=== PATIENT | male | born 1960 | race Caucasian/White ===

== ENCOUNTER 2022-08-30 09:20 | Observation (INO) ==
--- NOTE | 2022-08-01 09:15 | PAT Medication Instructions ---
Medication Instructions Date of Service August 01, 2022 Home Medications Medication Instructions Recorded celecoxib 200 mg capsule (Celebrex) 200 mg PO DAILY #30 caps 05/22/22 omeprazole 20 mg tablet,delayed release 20 mg PO HS celecoxib 200 mg capsule (Celebrex) 200 mg PO DAILY cholecalciferol (vitamin D3) 50 mcg (2,000 unit) capsule (Vitamin D3) 50 mcg PO QAM diclofenac sodium 75 mg tablet,delayed release 75 mg PO BID vitamin B complex 1 tab PO QAM ASK your surgeon for instructions celecoxib 200 mg capsule (Celebrex) 200 mg PO DAILY diclofenac sodium 75 mg tablet,delayed release 75 mg PO BID DO NOT take the morning of surgery cholecalciferol (vitamin D3) 50 mcg (2,000 unit) capsule (Vitamin D3) 50 mcg PO QAM vitamin B complex 1 tab PO QAM Take evening before surgery omeprazole 20 mg tablet,delayed release 20 mg PO HS Other Notes If you have any questions please call us at [phone] or [phone] or [phone] or [phone]
--- NOTE | 2022-08-06 10:31 | Anesthesiology Consultation ---
Date of Service August 06, 2022 Assessment & Plan (1) Encounter for pre-operative examination: - difficult intubation: per [place] PAT records, "small oral airway" L knee arthroscopy: 10/07/1920 Grade 1 view, glidescope 4, ETT 8. - PONV. - Outpatient joint assessment: Patient is currently scheduled for inpatient pathway. If re-evaluated pending system levels during current pandemic/surgeon requests outpatient pathway, patient is not recommended candidate for outpatient joint program from anesthesia standpoint pending surgeon's office assessment of pt motivation/support/completion of same day joint program preop requirements. Chart Review Chart Review: Acceptable Risk for Surgery and Patient seen in Pre Admission Testing Teaching & Discussion Pre-Anesthesia Teaching/Discussion Notes: Instructed NPO after midnight before surgery, except medications with 15 cc of water. Medication instructions provided according to the PAT guidelines. History Surgery Operation Date: 08/30/22 09:20 Proposed Procedures p Right Total Knee Arthroplasty - Patricio Kraus, Height/Weight Height: 5 ft 11 in Weight: 124.738 kg Allergies Allergy/AdvReac Type Severity Reaction Status Date / Time No Known Allergies Allergy Verified 07/30/22 11:48 Medications Home Medications Medication Instructions Recorded Confirmed Last Taken omeprazole 20 mg tablet,delayed 20 mg PO HS 09/21/19 07/30/22 12/29/19 23:00 release celecoxib 200 mg capsule (Celebrex) 200 mg PO DAILY #30 caps 05/22/22 05/22/22 Unknown cholecalciferol (vitamin D3) 50 50 mcg PO QAM 07/30/22 07/30/22 Unknown mcg (2,000 unit) capsule (Vitamin D3) diclofenac sodium 75 mg 75 mg PO BID 07/30/22 07/30/22 Unknown tablet,delayed release vitamin B complex 1 tab PO QAM 07/30/22 07/30/22 Unknown Past Medical History Medical History (Updated 08/06/22 @ 10:32 by Sarah Granger PA-C) Difficult intubation per [place], "small oral airway" L knee arthroscopy: 10/07/1920 Grade 1 view, glidescope 4, ETT 8. GERD (gastroesophageal reflux disease) controlled, stable per pt History of cardiac murmur as a child Hyperlipidemia Migraines Obesity Prediabetes Sleep apnea CPAP-compliant Patient denies h/o stroke, seizures, heart attack, heart failure, HTN, blood clots or blood transfusions. Exercise / Class Metabolic Activity II 4-5 Yardwork/Stairs/Walk up hill (denies chest discomfort or shortness of breath with 1 FOS) Past Family History Family History Father Family history of esophageal cancer Daughter PONV (postoperative nausea and vomiting) Past Surgical History Surgical History (Updated 08/06/22 @ 10:33 by Sarah Granger PA-C) History of arthroscopy of left knee 10/07/1920 Grade 1 view, glidescope 4, ETT 8. History of arthroscopy of right knee History of colonoscopy History of cystoscopy WNL History of tooth extraction Hx of vasectomy Nausea and vomiting after administration of anesthetic agent denies needing scop patch Past Anesthesia History Difficult Airway and Other (daughter with PONV) History of PONV No Hx of Motion Sickness and History of PONV (denies needing scop patch) Social History Smoking Status: Never smoker Do You Dip or Chew Tobacco: No Hx Alcohol Use: Yes Alcohol type: hard liquor alcohol intake frequency: holidays/special occasions only Hx Substance Use: No substance use type: does not use Review of Systems Patient denies chest pain, shortness of breath, dyspnea on exertion, fever, chills, cough, wheezing, or palpitations. Physical Exam Vital Signs Vitals BP 127/87 P 69 TEMP 98.1 SP02 97% on RA RESP 17 Physical Full cervical extension range of motion without pain TMD < 3 finger breadths Mallampati Score 2, small oral opening Dentition: several chipped teeth, several caps/crowns; denies loose teeth, implants or bridges Lungs: normal respiratory effort. Clear throughout to auscultation, no adventitious breath sounds Cardiac: regular rate and rhythm, no murmurs noted Carotid arteries: negative bruit bilat Lab Results Anesthesia Preop Results Results Anesthesia Widget: WBC 5.66 K/ul (4.8-10.8) 08/06/22 Hgb 14.5 g/dl (14.0-18.0) 08/06/22 Hct 42.3 % (42.0-52.0) 08/06/22 Plt 247 K/uL (130-400) 08/06/22 Na 138 mmol/L (136-145) 08/06/22 K 4.2 mmol/L (3.5-5.1) 08/06/22 Cl 104 mmol/L (98-107) 08/06/22 CO2 27 mmol/L (21-32) 08/06/22 BUN 23 mg/dl (6-23) 08/06/22 Creat 1.26 mg/dl (0.6-1.4) 08/06/22 Glucose Level 113 mg/dl (70-99(Fasting)) H 08/06/22 PT 11.1 Seconds (9.0-12.0) 08/06/22 PTT 29.9 Seconds (21.0-31.0) 08/06/22 INR 1.0 (0.9-1.1) 08/06/22 Blood Type B Negative 08/06/22 Antibody Screen NEGATIVE 08/06/22 Testing Electrocardiogram Date: 08/06/22 NSR, rate 66 bpm Chest X-Ray Date: 08/06/22 The cardiac silhouette is upper limits of normal in size. No pneumothorax, pleural effusion, airspace consolidation or pulmonary edema. Degenerative changes of the shoulders and spine. IMPRESSION: No acute process. COVID-19 Risk Screen Screening Information COVID-19 Screen Date: 08/06/22 Exposure 21 Days Family/Household +COVID Last 21 Days: No Exposure 10 Days Any COVID Exposure Last 10 Days: No Symptoms Last 10 Days Experienced COVID Sx Last 10 Days: No + COVID 0-90 Days COVID + in Last 0-90 Days: No
[~2022-08-30 09:20] MED LIST: ACETAMINOPHEN 500 MG TAB PO SCH; FAMOTIDINE 20 MG TAB PO SCH; GABAPENTIN 600 MG DOSE PO SCH; LR 500ML BOLUS, THEN 15ML/HR IV SCH; LR 60ML/HR IV SCH; ORTHO JOINT MIX INFIL SCH; ROPIVACAINE 0.5% 5 MG/ML 30 ML VIAL ONE; TRANEXAMIC ACID 1,000 MG **IV Intra-op IV SCH; TRANEXAMIC ACID 1,000 MG **IV Pre-op IV SCH; dexAMETHasone 4 MG TAB PO SCH
--- NOTE | 2022-08-30 09:37 | History & Physical Bridge Note ---
Date of Service August 30, 2022 History & Physical Bridge Note I have examined the patient, reviewed the History & Physical and in the interval since the performance of the History & Physical I have noted the following changes of clinical significance: no changes noted
[2022-08-30] MEDS ORDERED: MIDAZOLAM HCL 1 MG/ML 2ML VIAL ONE (10:28)
[2022-08-30] MEDS ORDERED: fentaNYL citrate PF 100 MCG/2 ML VIAL ONE (10:28)
[2022-08-30] MEDS ORDERED: PROPOFOL IV EMULSION 10 MG/ML 20 ML VIAL IV ONE ×3 (10:28→13:37)
[2022-08-30] MEDS ORDERED: ORTHO JOINT ANESTHETIC ONE (11:47)
[2022-08-30] MEDS ORDERED: ONDANSETRON INJ 2 MG/ML 2 ML VIAL ONE ×2 (11:51→12:09)
[2022-08-30] MEDS ORDERED: ONDANSETRON INJ 2 MG/ML 2 ML VIAL IV PRN ×2 (12:27→15:44)
[2022-08-30] MEDS ORDERED: ATROPINE SULFATE 0.1 MG/ML 10ML SYR IV PRN (12:27)
[2022-08-30] MEDS ORDERED: ePHEDrine sulfate 50 MG/ML AMP IV PRN (12:27)
[2022-08-30] MEDS ORDERED: HYDROmorphone INJ 1 MG/ML SYRINGE IV PRN (12:27)
--- NOTE | 2022-08-30 13:47 | Operative Report ---
PG Post Operative Report Pre & Post Diagnosis Operation Date: 08/30/22 11:40 Pre-Op Diagnosis: Degenerative Joint Disease Right Knee Post-Op Diagnosis: Degenerative Joint Disease Right Knee I identified the patient and participated in the time-out.: Yes Procedure Operation Date: 08/30/22 11:40 Actual Procedures p Right Total Knee Arthroplasty, Cemented(Left) - Patricio Kraus DO Surgeon Patricio Kraus DO [employer] Patricio Obando PA-C Estimated Blood Loss 30 Findings Consistent with Post-Op Diagnosis Specimens Right femoral and tibial bone Description of Procedure Implants used: I used a Vannessa Persona total knee arthroplasty system with a size 10 standard femur, left tibia, 31 oval patella, and a size 11 medial congruent polyethylene bearing. All components were cemented in place with Biomet cement. Cam arrived [facility] for the above procedure. He was seen in the preoperative holding area and the operative extremity was identified and signed. He was given a preoperative antibiotic, TXA, a spinal anesthetic and an adductor nerve block. He was taken back to the operating room and laid on the table in supine position. He was given basic sedation. The operative knee was then prepped and draped in sterile fashion. A timeout was done, and the patient and the operative extremity was properly identified. A midline incision was made directly over the patella. Dissection was taken down to the extensor mechanism. A midvastus arthrotomy was used. The medial retinaculum was released and the fat pad was mostly excised. The knee was flexed and the ACL, PCL, and meniscus were removed. A drill was sent down the center of the femoral canal followed by an intramedullary amaya. Off that amaya a distal femoral cutting block was placed. 9 mm was resected off the distal femur at 5 of valgus. A posterior referencing AP sizing guide was then placed on the distal femur. The femur measured to be a size 10. 2 drill holes were placed in 3 of external rotation. A 4-in-1 cutting block was then impacted into place. Anterior, posterior, and chamfer cuts were then made. The proximal tibia was then exposed. An external tibial alignment guide was placed. A tibial cut guide was then anchored in place and the proximal tibia was then resected. The posterior aspect of the knee was then opened up and any additional meniscus fragments and osteophytes were removed. The tibia measured to be a size F. The tibial plate was then placed in the appropriate rotation and the tibia was drilled and punched. Trial components were then placed. I used a size 11 medial congruent polyethylene insert. The knee was brought through a full range of motion and felt to be stable. The peg holes for the femoral component were then drilled. The patella was then everted and 9 mm was resected off the posterior aspect of the patella. The patella measured to be a size 31 oval. 3 peg holes were then drilled. A trial patella was placed. The knee was once again brought through a full range of motion and felt to be stable. Trial components were then removed. The surrounding soft tissues were injected with 100 cc of an orthopedic pain control cocktail. All components were then cemented into place with Biomet cement. The final polyethylene insert was then snapped into place. Once cement was dry the tourniquet was deflated. Hemostasis was obtained. A dilute betadyne lavage was then done for 3 minutes. The joint was then irrigated with normal saline solution. The midvastus arthrotomy was then closed with #1 Vicryl suture. The skin was closed with 2-0 Vicryl, 3-0V lock suture, and sheyla. A soft compressive dressing was placed. He was then transferred to a hospital bed and taken to the postanesthesia care unit in stable condition. He tolerated the procedure well. Patricio Obando PA-C, was present for the entire procedure. He was critical for patient positioning, prepping, draping, retraction exposure, wound closure and application of sterile dressing. I attest to the content of the Intraoperative Record and any orders documented therein. Any exceptions are noted below.
--- NOTE | 2022-08-30 14:49 | XRay Report ---
TWO VIEWS RIGHT KNEE CLINICAL HISTORY: Postoperative examination. FINDINGS: AP and crosstable lateral portable views of the right knee are obtained. A right knee arthr oplasty is in near anatomic alignment. There has been undersurface remodeling of the patella. No acut e fracture is seen. There are expected postoperative changes around the knee including skin clips, so ft tissue edema, and subcutaneous gas. IMPRESSION: Expected postoperative changes status post right knee arthroplasty. No acute fracture is seen. ACT 112: Negative or not required by law. Electronically signed by: Gilmer Ford M.D. 08/30/2022 2:48 PM
--- NOTE | 2022-08-30 14:51 | Anesthesiology Progress Note ---
Date of Service August 30, 2022 Anesthesia Post Procedure Vital Signs Vital Signs: Temp Pulse Pulse Resp BP BP Pulse Ox 08/30/22 14:40 66 17 141/77 H 96 08/30/22 14:30 75 17 116/84 96 08/30/22 14:20 82 21 129/84 98 08/30/22 14:12 36.2 C L 79 13 135/69 98 08/30/22 10:04 36.6 C 76 20 169/102 H 96 O2 Del Method O2 Flow Rate 08/30/22 14:40 Room Air 08/30/22 14:30 Room Air 08/30/22 14:20 Oxymask 5 08/30/22 14:12 Oxymask 11 08/30/22 10:04 Room Air Pain Intensity Right Knee: Pain Intensity: 3 Transfer of Care Handoff Completed per policy Notes Mental Status: alert / awake / arousable Patient Amnestic to Procedure: Yes Nausea / Vomiting: adequately controlled Pain: adequately controlled Airway Patency, RR, SpO2: stable & adequate BP & HR: stable & adequate Hydration State: stable & adequate Anesthetic Complications: no major complications apparent
[2022-08-30] MEDS ORDERED: METOCLOPRAMIDE HCL INJ 5 MG/ML 2 ML VIAL IV PRN (15:44)
[2022-08-30] MEDS ORDERED: MAGNESIUM HYDROXIDE SUSP 30 ML UDC PO PRN (15:44)
[2022-08-30] MEDS ORDERED: SODIUM CHLORIDE 0.9% 1000ML 1,000 ML IV SCH (15:44)
[2022-08-30] MEDS ORDERED: HYDROmorphone INJ 0.5 MG/0.5 ML SYR IV PRN (15:44)
[2022-08-30] MEDS ORDERED: NALOXONE HCL 0.4 MG/1 ML VIAL/CARP IV PRN (15:44)
[2022-08-30] MEDS ORDERED: bisacodyL 10 MG SUPP PR PRN (15:44)
[2022-08-30] MEDS: KETOROLAC 30 MG/ML VIAL IV SCH ×2 (16:46→21:01)
[2022-08-30] MEDS: oxyCODONE HCL IR 5 MG TAB (IMMEDIATE RELEASE) PO PRN ×2 (18:48→22:48)
[2022-08-30] MEDS: DOCUSATE SODIUM 100 MG CAP PO SCH (20:52)
[2022-08-30] MEDS: ceFAZolin 2000MG 2,000 MG/15 ML SYR IV SCH (20:54)
[2022-08-30] MEDS ORDERED: SENNA 8.6 MG TAB PO SCH (21:00)
[2022-08-30] MEDS ORDERED: PANTOprazole 40 MG TAB PO SCH (21:00)
[2022-08-30] MEDS: ACETAMINOPHEN 500 MG TAB PO SCH (21:00)
[2022-08-31] MEDS: ceFAZolin 2000MG 2,000 MG/15 ML SYR IV SCH (04:51)
[2022-08-31] MEDS: KETOROLAC 30 MG/ML VIAL IV SCH (04:52)
[2022-08-31] MEDS: ACETAMINOPHEN 500 MG TAB PO SCH (05:01)
--- NOTE | 2022-08-31 05:42 | Orthopedic Progress Note ---
Date of Service August 31, 2022 Assessment & Plan (1) Status post right knee replacement: Overall is doing very well. Is not having much pain in the right knee. He will be seen by physical therapy today for ambulation and range of motion exercises. He is on aspirin for DVT prophylaxis. He can be discharged home later today. He will follow-up with orthopedics in 2 weeks. Nicolas Levy was seen and examined at bedside this morning. Overall is doing very well. He is not having much pain in the right knee. He has been up and ambulating to the bathroom. He has no complaints.. Review of Systems All systems reviewed & are unremarkable except as noted in HPI & below. Physical Exam On physical examination of the right knee, the dressing is clean and dry. His leg is out full extension. He has active dorsiflexion plantarflexion of the right ankle.. Results & Data Results & Data Laboratory Results . Diagnostic Findings Postoperative x-rays of the right knee show the prosthesis to be in anatomic alignment without any evidence of fracture, dislocation, or loosening.. PG Care Time/CCT Total # of Minutes Spent Total Time Spent with Patient: Total time spent is greater than 50% in coordination of care (as documented) at patient's floor/unit and/or counseling patient: Coding Level of Care Code 20412 Post Operative Follow-Up Diagnoses Status post right knee replacement Z96.651
--- NOTE | 2022-08-31 05:43 | Discharge Summary ---
Date of Service August 31, 2022 Principal Diagnosis Same as "Discharge Diagnosis" noted below under Discharge Instructions. Discharge Exam On physical examination of the right knee, the dressing is clean and dry. His leg is out full extension. He has active dorsiflexion plantarflexion of the right ankle.. Discharge Data Procedures Performed Operation Date: 08/30/22 11:40 Actual Procedures p Right Total Knee Arthroplasty, Cemented(Left) - Patricio Kraus DO Ordered Studies 08/30/22 05:00 US - OR guided needle placemen Routine Hospital Course (1) Status post right knee replacement: On August 30, 2022 Cam arrived at [facility] and underwent a right knee replacement without complication. He had a spinal anesthetic. Postoperatively he was started on aspirin for DVT prophylaxis and transferred to the general orthopedic floors. His hospital course was uneventful. On postop day #1, his vital signs were stable and his pain was well controlled. He was able to participate well with physical therapy doing ambulation and range of motion exercises. He was then discharged home. He will follow-up with orthopedics in 2 weeks. PG Care Time/CCT Total # of Minutes Spent Total Time Spent with Patient: Total time spent is greater than 50% in coordination of care (as documented) at patient's floor/unit and/or counseling patient: Discharge Plan Discharge Items Patient Disposition: Home - Home Health Services Reason For Visit: POST OP Discharge Diagnosis: Right knee replacement Activity: Per Instructions section Non-emergency contact: Surgeon Call non-emergency contact if: your wound has increased redness and your wound has increased drainage Follow-up/Referrals: Hector Rodrigues PA-C [Primary Care Provider] - Diet: Regular Addtl Attending Provider Instructions: Activity and Therapy Recommendations: * If you are using [facility] then therapy will be provided at your home until they feel you have accomplished all of your goals. * If you are using [facility] then Physical Therapy will be provided until they feel you are ready to start Outpatient Physical Therapy. * If you are not using home therapy then Outpatient Physical Therapy should start about 3-5 days from your day of surgery. Therapy will last about 6-10 weeks * It is important not to put a pillow under your knee when you are relaxing or sleeping. It is just as important to make sure you are getting your knee perfectly straight as it is to regain your knee bend. * You were shown a series of exercises in the hospital. Do these exercises three times each day including the exercises you were shown in physical therapy. * Get up and walk several times each day. For the first four weeks, try not to stand or walk for more than one hour at a time. If you do stand or walk for more than one hour, you will not hurt anything, but your leg will likely swell. * As you feel comfortable, you may change from the walker or crutches to a cane and then to independent walking. Medications: * Narcotic You will likely be sent home from the hospital with a prescription for the narcotic pain medication that worked best throughout your stay. * Aspirin Most patients will be required to take Aspirin 81mg twice a day for 6 weeks after surgery. This is obtained [id number] and a prescription is not necessary. * Other medications may be prescribed for specific circumstances. If you have any questions, please call the office at . * Resume previous home medications unless otherwise instructed TEDs/Elastic Stockings: The white elastic stockings help limit swelling and prevent blood clots from forming in your legs.~ The more you wear them, the more they work. Wear them for six weeks. Dressing Care: The dressing can be changed after physical therapy on postop day #1. Daily dry dressing changes for a few days, especially if the incision is still draining some. If the incision is not draining then you may leave the sheyla open to air. If there is a little bit of drainage or if the sheyla are getting stuck on your clothing then cover the incision with a dry dressing. The sheyla will be removed at your 2 week follow-up appointment. Showering: You may shower 5 days from the day of surgery as long as the incision is no longer draining. You may shower with the sheyla exposed. Let soapy water run over the sheyla and pat them dry. Do not scrub or soak the incision. Things To Watch For: * Drainage from the incision site that occurs more than one week after your surgery. * Increased redness at the incision site. * Fever above 102 degrees Fahrenheit. * Unusual chest pain or shortness of breath. * Call [facility] at with any of the above pro blems Follow-Up Visit: Follow-up with Dr. Kraus's PA (Patricio Obando) 2-3 weeks after your day of surgery. He will remove your sheyla and answer any questions. If you have any additional questions or concerns, Dr Kraus is usually in the office at the same time and will be available An appointment was probably scheduled when you signed-up for surgery in the office. If you have any questions call Office Instructions: More detailed instructions as well as Frequently Asked Questions were provided in a folder by our office when you signed-up for surgery. Please review these instructions when you get home. If you have any further questions or concerns, please feel free to call the office at [phone] Pending Studies at Discharge: No Stand-Alone Forms: My [facility] Medications and DC Order Prescriptions: New oxycodone-acetaminophen 5-325 mg tablet 1 tab PO Q6H PRN (Reason: pain) Qty: 30 0RF aspirin [Adult Aspirin Regimen] 81 mg tablet,delayed release (DR/EC) 81 mg PO BID Qty: 84 0RF Continued omeprazole 20 mg Tablet,Delayed Release (Dr/Ec) 20 mg PO HS diclofenac sodium 75 mg Tablet,Delayed Release (Dr/Ec) 75 mg PO HS vitamin B complex Tablet 1 tab PO QAM cholecalciferol (vitamin D3) [Vitamin D3] 50 mcg (2,000 unit) Capsule 50 mcg PO QAM Admission Data Admit Date/Time: 08/30/22 14:11 Attending Provider: Patricio Kraus Admit Provider: Patricio Kraus Primary Care Provider: Hector Rodrigues
[2022-08-31] MEDS ORDERED: dexAMETHasone 4 MG TAB PO SCH (08:00)
[2022-08-31] MEDS: DOCUSATE SODIUM 100 MG CAP PO SCH (08:29)
[2022-08-31] MEDS: oxyCODONE HCL IR 5 MG TAB (IMMEDIATE RELEASE) PO PRN (08:32)
[2022-08-31] MEDS ORDERED: MULTIVITAMIN TAB PO SCH (09:00)
== END 2022-08-31 10:55 | disposition home or self-care (01) ==
LOC: 3W 09:20 → ASU 09:20

== ENCOUNTER 2023-10-31 10:26 | Observation (INO) ==
--- NOTE | 2023-10-08 10:53 | PAT Medication Instructions ---
Medication Instructions Date of Service October 08, 2023 Home Medications Medication Instructions Recorded oxycodone-acetaminophen 5 mg-325 1 tab PO Q6H PRN pain #30 tabs 08/30/22 mg tablet amoxicillin 500 mg capsule 500 mg PO ONCE #20 caps 11/26/22 omeprazole 20 mg tablet,delayed release 20 mg PO HS cholecalciferol (vitamin D3) 50 mcg (2,000 unit) capsule (Vitamin D3) 50 mcg PO QAM vitamin B complex 1 tab PO QAM oxycodone-acetaminophen 5 mg-325 mg tablet 1 tab PO Q6H PRN amoxicillin 500 mg capsule 500 mg PO ONCE Continue as directed amoxicillin 500 mg capsule 500 mg PO ONCE DO NOT take the morning of surgery cholecalciferol (vitamin D3) 50 mcg (2,000 unit) capsule (Vitamin D3) 50 mcg PO QAM vitamin B complex 1 tab PO QAM Take morning of surgery With a small sip of water, OTHERWISE NOTHING TO EAT OR DRINK AFTER MIDNIGHT: oxycodone-acetaminophen 5 mg-325 mg tablet 1 tab PO Q6H PRN(if needed) Take evening before surgery omeprazole 20 mg tablet,delayed release 20 mg PO HS oxycodone-acetaminophen 5 mg-325 mg tablet 1 tab PO Q6H PRN(if needed) Other Notes If you have any questions please call us at [phone] or [phone] or [phone] or [phone]
--- NOTE | 2023-10-15 09:00 | Anesthesiology Consultation ---
Date of Service October 15, 2023 Assessment & Plan (1) Encounter for pre-operative examination: - Check BSG AM DOS - Infectious disease screening: Per assessment on 10/15/23: No known infectious disease contacts or current infectious disease symptoms. No noted recent Covid positive test result. - Outpatient joint assessment: Pt currently scheduled for inpatient pathway. If surgeon requests review for outpatient joint pathway, patient is an acceptable candidate for outpatient joint program from anesthesia standpoint pending surgeon's office assessment that patient is motivated, has good support and completes [facility] preop requirements. - Hx difficult intubation: * Per [facility], [facility] records, "small oral airway" * Left knee arthroscopy: 10/07/1920 Grade 1 view, glidescope 4, ETT 8 - S/P Right TKA (08/30/22): SAB at L3-4 + regional at [facility] - PONV: Patient states significant improvement with recent surgery when IV pretreatment/antiemetic provided. Chart Review Chart Review: Acceptable Risk for Surgery and Patient seen in Pre Admission Testing Teaching & Discussion Pre-Anesthesia Teaching/Discussion Notes: Instructed NPO after midnight before surgery,except medications with 15 cc of water. Medication instructions provided according to the [facility] guidelines. History Surgery Operation Date: 10/31/23 09:00 Proposed Procedures p Left Total Knee Arthroplasty - Patricio Kraus, Height/Weight Height: 5 ft 10 in Weight: 126.1 kg Allergies Allergy/AdvReac Type Severity Reaction Status Date / Time No Known Allergies Allergy Verified 08/30/22 09:52 Medications Home Medications Medication Instructions Recorded Confirmed Last Taken omeprazole 20 mg tablet,delayed 20 mg PO HS 09/21/19 09/24/23 08/29/22 20:00 release cholecalciferol (vitamin D3) 50 50 mcg PO QAM 07/30/22 09/24/23 Unknown mcg (2,000 unit) capsule (Vitamin D3) vitamin B complex 1 tab PO QAM 07/30/22 09/24/23 Unknown oxycodone-acetaminophen 5 mg-325 1 tab PO Q6H PRN pain #30 tabs 08/30/22 09/24/23 Unknown mg tablet amoxicillin 500 mg capsule 500 mg PO ONCE #20 caps 11/26/22 09/24/23 Unknown Past Medical History Medical History GERD (gastroesophageal reflux disease) controlled, stable per pt History of cardiac murmur as a child No murmur noted during PAT evaluation 10/15/23 Hyperlipidemia Migraines Obesity Osteoarthritis Prediabetes Seasonal allergies Sleep apnea CPAP (compliant) Exercise / Class Metabolic Activity II 4-5 Yardwork/Stairs/Walk up hill (one FS: No CP, no SOB) Past Family History Family History Father Family history of esophageal cancer Daughter PONV (postoperative nausea and vomiting) Past Surgical History Surgical History Difficult intubation Per [place] PAT records, "small oral airway" Left knee arthroscopy: 10/07/1920 Grade 1 view, glidescope 4, ETT 8 History of arthroscopy of left knee 10/07/1920 Grade 1 view, glidescope 4, ETT 8 History of arthroscopy of right knee History of colonoscopy History of cystoscopy History of tooth extraction History of total right knee replacement Right TKA (08/30/22): SAB at L3-4 + regional at [facility] Hx of vasectomy Nausea and vomiting after administration of anesthetic agent Past Anesthesia History Difficult Airway (Per [place] PAT records, "small oral airway" > Left knee arthroscopy: 10/07/1920 Grade 1 view, glidescope 4, ETT 8) and No Family Hx of Anesthesia Complications (except daughter with PONV) History of PONV History of PONV (Improved when pretreatment used) Social History Smoking Status: Never smoker Do You Dip or Chew Tobacco: No Hx Alcohol Use: Yes Alcohol type: hard liquor alcohol intake frequency: holidays/special occasions only Hx Substance Use: No substance use type: does not use Review of Systems Patient denies chest pain, shortness of breath, dyspnea on exertion, fever, chills, cough, wheezing, palpitations. Physical Exam Vital Signs BP 153/93 P 74 TEMP 98.0 SP02 96%RA RESP 18 Physical Full cervical extension range of motion. Full TMJ range of motion. TMD < 3 finger breaths (difficult to palpate) Mallampati Score 3 Dentition: intact, several crowns/root canals, missing tooth Lungs: clear throughout to auscultation Cardiac: regular rate and rhythm, no murmurs noted Spine: normal Carotid arteries: negative bruit Extremities: no LE edema Short, think neck Lab Results Anesthesia Preop Results Results Anesthesia Widget: WBC 5.32 K/ul (4.8-10.8) 10/15/23 Hgb 15.1 g/dl (14.0-18.0) 10/15/23 Hct 45.2 % (42.0-52.0) 10/15/23 Plt 236 K/uL (130-400) 10/15/23 Na 138 mmol/L (136-145) 10/15/23 K 4.1 mmol/L (3.5-5.1) 10/15/23 Cl 103 mmol/L (98-107) 10/15/23 CO2 27 mmol/L (21-32) 10/15/23 BUN 19 mg/dl (6-23) 10/15/23 Creat 1.22 mg/dl (0.6-1.4) 10/15/23 Glucose Level 118 mg/dl (70-99(Fasting)) H 10/15/23 PT 10.9 Seconds (9.0-12.0) 10/15/23 PTT 29 Seconds (21-31) 10/15/23 INR 1.0 (0.9-1.1) 10/15/23 Blood Type B Negative 10/15/23 Antibody Screen NEGATIVE 10/15/23 Testing Electrocardiogram Date: 10/15/23 NSR at 76bpm. "Normal ECG" Chest X-Ray Date: 10/15/23 FINDINGS: PA and lateral chest radiographs are compared to study dated 08/06/2022. The heart is mildly enlarged. The pulmonary vasculature is noncongested. The lungs and pleural spaces are clear. There is no pneumothorax. The bony thorax appears intact. Arthritic change is noted in the shoulders. IMPRESSION: No active disease in the chest.
[~2023-10-31 10:26] MED LIST changes: -ACETAMINOPHEN 500 MG TAB PO SCH; +BUPIVACAINE 0.5 % 5 MG/1 ML PF 10ML VIAL ONE; -FAMOTIDINE 20 MG TAB PO SCH; -GABAPENTIN 600 MG DOSE PO SCH; -LR 500ML BOLUS, THEN 15ML/HR IV SCH; -LR 60ML/HR IV SCH; -ORTHO JOINT MIX INFIL SCH; -TRANEXAMIC ACID 1,000 MG **IV Intra-op IV SCH; -TRANEXAMIC ACID 1,000 MG **IV Pre-op IV SCH; -dexAMETHasone 4 MG TAB PO SCH
[2023-10-31] MEDS: ACETAMINOPHEN 500 MG TAB PO SCH (10:59)
[2023-10-31] MEDS: GABAPENTIN 600 MG DOSE PO SCH (10:59)
[2023-10-31] MEDS: FAMOTIDINE 20 MG TAB PO SCH (10:59)
[2023-10-31] MEDS: dexAMETHasone**PF** 10 MG/ML VIAL IV SCH (11:00)
[2023-10-31] MEDS: LR 60ML/HR IV SCH (11:00)
[2023-10-31] MEDS ORDERED: DEXAMETHASONE SOD INJ 4 MG/ML VIAL ONE (11:08)
[2023-10-31] MEDS ORDERED: ONDANSETRON INJ 2 MG/ML 2 ML VIAL ONE (11:08)
[2023-10-31] MEDS ORDERED: LIDOCAINE 2% 2 ML VIAL/AMP(20MG/ML) INFIL ONE (11:08)
[2023-10-31] MEDS ORDERED: PROPOFOL IV EMULSION 10 MG/ML 20 ML VIAL IV ONE (11:08)
[2023-10-31] MEDS ORDERED: MIDAZOLAM HCL 1 MG/ML 2ML VIAL ONE (11:09)
[2023-10-31] MEDS ORDERED: fentaNYL citrate PF 100 MCG/2 ML VIAL ONE (11:09)
[2023-10-31] MEDS: LR 500ML BOLUS, THEN 15ML/HR IV SCH (11:10)
--- NOTE | 2023-10-31 11:37 | History & Physical Bridge Note ---
Date of Service October 31, 2023 History & Physical Bridge Note I have examined the patient, reviewed the History & Physical and in the interval since the performance of the History & Physical I have noted the following changes of clinical significance: no changes noted
[2023-10-31] MEDS: TRANEXAMIC ACID 1,000 MG **IV Pre-op IV SCH (12:19)
[2023-10-31] MEDS: ceFAZolin 3000MG 3,000 MG/72.5 ML BAG IV SCH (12:39)
[2023-10-31] MEDS: ROPIV 0.5% 246mg, Ketorolac 30mg, EPINEPHrine 0.5mg in NSS INFIL SCH (13:33)
[2023-10-31] MEDS: ORTHO JOINT ANESTHETIC ONE (13:33)
--- NOTE | 2023-10-31 14:25 | Operative Report ---
PG Post Operative Report Pre & Post Diagnosis Operation Date: 10/31/23 12:00 Pre-Op Diagnosis: Degenerative Joint Disease Left Knee Post-Op Diagnosis: Degenerative Joint Disease Left Knee I identified the patient and participated in the time-out.: Yes Procedure Operation Date: 10/31/23 12:00 Actual Procedures p Left Total Knee Arthroplasty(Left) - Patricio Kraus DO Surgeon Patricio Kraus DO Cafeteria Associate None Estimated Blood Loss 30 Findings Consistent with Post-Op Diagnosis Specimens Left femoral and tibial bone Description of Procedure Implants used: I used a Vannessa Persona total knee arthroplasty system with a size 10 standard femur, F tibia, 31 oval patella, and a size 14 medial congruent polyethylene bearing. All components were cemented in place with Biomet cement. Cam arrived [facility] for the above procedure. He was seen in the preoperative holding area and the operative extremity was identified and signed. He was given a preoperative antibiotic, TXA, a spinal anesthetic and an adductor nerve block. He was taken back to the operating room and laid on the table in supine position. He was given basic sedation. The operative knee was then prepped and draped in sterile fashion. A timeout was done, and the patient and the operative extremity was properly identified. A midline incision was made directly over the patella. Dissection was taken down to the extensor mechanism. A medial parapatellar arthrotomy was used. The medial retinaculum was released and the fat pad was mostly excised. The knee was flexed and the ACL, PCL, and meniscus were removed. A drill was sent down the center of the femoral canal followed by an intramedullary amaya. Off that amaya a distal femoral cutting block was placed. 9 mm was resected off the distal femur at 5 of valgus. A posterior referencing AP sizing guide was then placed on the distal femur. The femur measured to be a size 10. 2 drill holes were placed in 3 of external rotation. A 4-in-1 cutting block was then impacted into place. Anterior, posterior, and chamfer cuts were then made. The proximal tibia was then exposed. An external tibial alignment guide was placed. A tibial cut guide was then anchored in place and the proximal tibia was then resected. The posterior aspect of the knee was then opened up and any additional meniscus fragments and osteophytes were removed. The tibia measured to be a size F. The tibial plate was then placed in the appropriate rotation and the tibia was drilled and punched. Trial components were then placed. I used a size 14 medial congruent polyethylene insert. The knee was brought through a full range of motion and felt to be stable. The peg holes for the femoral component were then drilled. The patella was then everted and 9 mm was resected off the posterior aspect of the patella. The patella measured to be a size 31 oval. 3 peg holes were then drilled. A trial patella was placed. The knee was once again brought through a full range of motion and felt to be stable. Trial components were then removed. The surrounding soft tissues were injected with 100 cc of an orthopedic pain control cocktail. All components were then cemented into place with Biomet cement. The final polyethylene insert was then snapped into place. Once cement was dry the tourniquet was deflated. Hemostasis was obtained. A dilute betadyne lavage was then done for 3 minutes. The joint was then irrigated with normal saline solution. The medial parapatellar arthrotomy was then closed with #1 Vicryl suture. The skin was closed with 2-0 Vicryl, 3-0V lock suture, and sheyla. A soft compressive dressing was placed. He was then transferred to a hospital bed and taken to the postanesthesia care unit in stable condition. He tolerated the procedure well. I attest to the content of the Intraoperative Record and any orders documented therein. Any exceptions are noted below.
--- NOTE | 2023-10-31 15:01 | Anesthesiology Progress Note ---
Date of Service October 31, 2023 Anesthesia Post Procedure Vital Signs Vital Signs: Temp Pulse Pulse Resp BP Pulse Ox O2 Del Method 10/31/23 14:55 67 16 126/87 99 Room Air 10/31/23 14:45 36.4 C L 75 17 127/78 95 Room Air 10/31/23 14:35 81 14 118/78 98 Oxymask 10/31/23 14:25 78 16 131/81 99 Oxymask 10/31/23 14:15 36 C L 79 14 142/86 H 97 Oxymask 10/31/23 10:51 37 C 79 20 174/107 H 96 Room Air O2 Flow Rate 10/31/23 14:55 10/31/23 14:45 10/31/23 14:35 3 10/31/23 14:25 6 10/31/23 14:15 6 10/31/23 10:51 Transfer of Care Handoff Completed per policy Notes Mental Status: alert / awake / arousable Patient Amnestic to Procedure: Yes Nausea / Vomiting: adequately controlled Pain: adequately controlled Airway Patency, RR, SpO2: stable & adequate BP & HR: stable & adequate Hydration State: stable & adequate Neuraxial Anesthesia: was administered and sensory block is resolving Anesthetic Complications: no major complications apparent
--- NOTE | 2023-10-31 15:43 | XRay Report ---
TWO VIEWS LEFT KNEE CLINICAL HISTORY: Postoperative examination. FINDINGS: AP and crosstable lateral portable views of the left knee are obtained. A left knee arthrop lasty is in near anatomic alignment. There has been undersurface remodeling of the patella. No acute fracture is seen. There are expected postoperative changes around the knee including skin clips, soft tissue edema, and subcutaneous gas. IMPRESSION: Expected postoperative changes status post left knee arthroplasty. No acute fracture is s een. ACT 112: Negative or not required by law. Electronically signed by: Gilmer Ford M.D. 10/31/2023 3:42 PM
[2023-10-31] MEDS ORDERED: ONDANSETRON INJ 2 MG/ML 2 ML VIAL IV PRN (16:48)
[2023-10-31] MEDS ORDERED: METOCLOPRAMIDE HCL INJ 5 MG/ML 2 ML VIAL IV PRN (16:48)
[2023-10-31] MEDS ORDERED: NALOXONE HCL 0.4 MG/1 ML VIAL/CARP IV PRN (16:48)
[2023-10-31] MEDS ORDERED: MAGNESIUM HYDROXIDE SUSP 30 ML UDC PO PRN (16:48)
[2023-10-31] MEDS ORDERED: bisacodyL 10 MG SUPP PR PRN (16:48)
[2023-10-31] MEDS ORDERED: HYDROmorphone INJ 0.5 MG/0.5 ML SYR IV PRN (16:48)
[2023-10-31] MEDS: TRANEXAMIC ACID 1,000 MG **IV Intra-op IV SCH (16:51)
[2023-10-31] MEDS: SODIUM CHLORIDE 0.9% 1,000 ML IV SCH (16:57)
[2023-10-31] MEDS: KETOROLAC 30 MG/ML VIAL IV SCH (16:58)
[2023-10-31] MEDS: oxyCODONE HCL IR 5 MG TAB (IMMEDIATE RELEASE) PO PRN (18:42)
[2023-10-31] MEDS: SENNA 8.6 MG TAB PO SCH (20:36)
[2023-10-31] MEDS: ASPIRIN 81 MG ECTAB PO SCH (20:36)
[2023-10-31] MEDS: DOCUSATE SODIUM 100 MG CAP PO SCH (20:36)
[2023-10-31] MEDS: PANTOprazole 40 MG TAB PO SCH (20:36)
[2023-10-31] MEDS: ceFAZolin 2000MG 2,000 MG/15 ML SYR IV SCH (20:54)
[2023-11-01] MEDS: dexAMETHasone 4 MG TAB PO SCH (08:35)
[2023-11-01] MEDS: MULTIVITAMIN TAB PO SCH (08:35)
--- NOTE | 2023-11-01 08:48 | Orthopedic Progress Note ---
Date of Service November 01, 2023 Assessment & Plan (1) Status post left knee replacement: Overall he is doing well. Is not having much pain in the left knee. He will be seen by physical therapy today for ambulation and range of motion exercises. The nursing staff can change his dressing after physical therapy. He is on aspirin for DVT prophylaxis. He can be discharged home later today. He will follow-up with orthopedics in 2 weeks. Nicolas Levy was seen and examined at bedside this morning. Overall is doing very well. Is not having much pain in the left knee. He has been up and ambulating to the bathroom. He has no complaints.. Review of Systems All systems reviewed & are unremarkable except as noted in HPI & below. Physical Exam On physical examination left knee, the dressing is clean and dry. His legs out full extension. He has active dorsiflexion plantarflexion of his left ankle.. Results & Data Results & Data Laboratory Results . Diagnostic Findings Postoperative x-rays of the left knee show the prosthesis to be in anatomic alignment without any evidence of fracture, his cage, or loosening.. PG Care Time/CCT Total # of Minutes Spent Total Time Spent with Patient: Total time spent is greater than 50% in coordination of care (as documented) at patient's floor/unit and/or counseling patient: Coding Level of Care Code 25550 Post Operative Follow-Up Diagnoses Status post left knee replacement Z96.652
--- NOTE | 2023-11-01 08:49 | Discharge Summary ---
Date of Service November 01, 2023 Principal Diagnosis Same as "Discharge Diagnosis" noted below under Discharge Instructions. Discharge Exam On physical examination left knee, the dressing is clean and dry. His legs out full extension. He has active dorsiflexion plantarflexion of his left ankle.. Discharge Data Procedures Performed Operation Date: 10/31/23 12:00 Actual Procedures p Left Total Knee Arthroplasty(Left) - Patricio Kraus DO Ordered Studies 10/31/23 05:00 US - OR guided needle placemen Routine Hospital Course (1) Status post left knee replacement: On October 31, 2023 Cam arrived at [facility] and underwent a left knee replacement without complication. He had a spinal anesthetic. Postoperatively he was started on aspirin for DVT prophylaxis and transferred to the general orthopedic floors. His hospital course was uneventful. On postop day #1, his vital signs were stable and her pain was well-controlled. He was able to participate well with physical therapy doing ambulation and range of motion exercises. He was then discharged home. He will follow-up with orthopedics in 2 weeks.. PG Care Time/CCT Total # of Minutes Spent Total Time Spent with Patient: Total time spent is greater than 50% in coordination of care (as documented) at patient's floor/unit and/or counseling patient: Discharge Plan Discharge Items Patient Disposition: Home - Self-Care Reason For Visit: LEFT KNEE REPLACEMENT Discharge Diagnosis: Left knee replacement Activity: Per Instructions section Non-emergency contact: Surgeon Call non-emergency contact if: your wound has increased redness and your wound has increased drainage Follow-up/Referrals: Hector Rodrigues PA-C [Primary Care Provider] - Diet: Regular Addtl Attending Provider Instructions: Activity and Therapy Recommendations: * If you are using [facility] then therapy will be provided at your home until they feel you have accomplished all of your goals. * If you are using [facility] then Physical Therapy will be provided until they feel you are ready to start Outpatient Physical Therapy. * If you are not using home therapy then Outpatient Physical Therapy should start about 3-5 days from your day of surgery. Therapy will last about 6-10 weeks * It is important not to put a pillow under your knee when you are relaxing or sleeping. It is just as important to make sure you are getting your knee perfectly straight as it is to regain your knee bend. * You were shown a series of exercises in the hospital. Do these exercises three times each day including the exercises you were shown in physical therapy. * Get up and walk several times each day. For the first four weeks, try not to s tand or walk for more than one hour at a time. If you do stand or walk for more than one hour, you will not hurt anything, but your leg will likely swell. * As you feel comfortable, you may change from the walker or crutches to a cane and then to independent walking. Medications: * Narcotic You will likely be sent home from the hospital with a prescription for the narcotic pain medication that worked best throughout your stay. * Cefadroxil -take the antibiotic twice a day for 10 days to help prevent infection. * Aspirin Most patients will be required to take Aspirin 81mg twice a day for 6 weeks after surgery. This is obtained [id number] and a prescription is not necessary. * Other medications may be prescribed for specific circumstances. If you have any questions, please call the office at . * Resume previous home medications unless otherwise instructed TEDs/Elastic Stockings: The white elastic stockings help limit swelling and prevent blood clots from forming in your legs.~ The more you wear them, the more they work. Wear them for six weeks. Dressing Care: The dressing can be changed after physical therapy on postop day #1. Daily dry dressing changes for a few days, especially if the incision is still draining some. If the incision is not draining then you may leave the sheyla open to air. If there is a little bit of drainage or if the sheyla are getting stuck on your clothing then cover the incision with a dry dressing. The sheyla will be removed at your 2 week follow-up appointment. Showering: You may shower 5 days from the day of surgery as long as the incision is no longer draining. You may shower with the sheyla exposed. Let soapy water run over the sheyla and pat them dry. Do not scrub or soak the incision. Things To Watch For: * Drainage from the incision site that occurs more than one week after your surgery. * Increased redness at the incision site. * Fever above 102 degrees Fahrenheit. * Unusual chest pain or shortness of breath. * Call [facility] at with any of the above problems Follow-Up Visit: Follow-up with Dr. Kraus's PA (Patricio Obando) 2-3 weeks after your day of surgery. He will remove your sheyla and answer any questions. If you have any additional questions or concerns, Dr Kraus is usually in the office at the same time and will be available An appointment was probably scheduled when you signed-up for surgery in the office. If you have any questions call Office Instructions: More detailed instructions as well as Frequently Asked Questions were provided in a folder by our office when you signed-up for surgery. Please review these instructions when you get home. If you have any further questions or concerns, please feel free to call the office at [phone] Pending Studies at Discharge: No Stand-Alone Forms: My [facility] Medications and DC Order Prescriptions: New oxycodone 5 mg Tablet 5 mg PO Q4H PRN (Reason: pain) Qty: 30 0RF cefadroxil 500 mg capsule 500 mg PO BID 10 Days Qty: 20 0RF aspirin 81 mg Tablet,Delayed Release (Dr/Ec) 81 mg PO BID 42 Days Qty: 84 0RF Continued amoxicillin 500 mg capsule 500 mg PO ONCE Qty: 20 0RF Rx Instructions: take 4 capsules 1 hour prior to dental procedure omeprazole 20 mg Tablet,Delayed Release (Dr/Ec) 20 mg PO HS vitamin B complex Tablet 1 tab PO QAM cholecalciferol (vitamin D3) [Vitamin D3] 50 mcg (2,000 unit) Capsule 50 mcg PO QAM Discontinued oxycodone-acetaminophen 5-325 mg tablet 1 tab PO Q6H PRN (Reason: pain) Qty: 30 0RF Discharge Orders: Discharge Order (Routine); Ordered 11/01/23 Ordered By: Patricio Kraus Admission Data Admit Date/Time: 10/31/23 15:23 Attending Provider: Patricio Kraus Admit Provider: Patricio Kraus Primary Care Provider: Hector Rodrigues
== END 2023-11-01 10:52 | disposition home or self-care (01) ==
LOC: ASU 10:26 → 3E 10:26